=== PATIENT | female | born 1960 | race Caucasian/White ===

== ENCOUNTER → 2020-03-30 | Outpatient (CLI) | payer BC ==
[~2020-03-30] MED LIST: ASPIRIN EC325 M1 PO; BYSTOLIC 5 MG5 M1 OR; CLOPIDOGREL; CRESTOR20 MG OR; HYDROCODON-ACE1 EAC7 OR
== END ==
LOC: SJCVCIMAG 10:48
PROVIDERS: ATTEND Internal Medicine Cardiovascular Disease
DX: I65.23 Occlusion and stenosis of bilateral carotid arteries (principal); H53.9 Unspecified visual disturbance; E78.2 Mixed hyperlipidemia